=== PATIENT | male | born 1980 | race Caucasian/White ===

== ENCOUNTER 2016-07-14 08:55 | Emergency (ER) | payer OTHER ==
[2016-07-14 09:04] VITALS: BMI 29.0
[2016-07-14] MEDS ORDERED: Lidocaine 2% Viscous 100 ml PO STA (09:15)
[2016-07-14] MEDS ORDERED: Belladonna-Phenobarbital PO STA (09:15)
[2016-07-14] MEDS ORDERED: Sodium Chloride 0.9% 1,000 ML IV ONE (09:15)
[2016-07-14] MEDS ORDERED: Aluminum Hydroxide/Magnesium Hydroxide Susp (30 mL) PO STA (09:15)
--- NOTE | 2016-07-14 09:18 | C.PDOC ---
History Of Present Illness 36 y/o male presents to ED with complaints of epigastric abdominal pain, nausea and vomiting since yesterday. Pain is described as "burning and cramping", non radiating, and thinks it was caused by "spicy shrimp dinner". Patient denies fever, diarrhea or constipation. Patient took Pepto-bismol and Suzanna seltzer without relief. No other complaints at this time. Time Seen by Provider: 07/14/16 09:11 Chief Complaint (Nursing): Abdominal Pain History Per: Patient History/Exam Limitations: no limitations Onset/Duration Of Symptoms: Days Current Symptoms Are (Timing): Still Present Context: Food Quality Of Discomfort: Cramping, Burning Associated Symptoms: Nausea, Vomiting. denies: Fever, Chills, Diarrhea Past Medical History Reviewed: Historical Data, Nursing Documentation, Vital Signs Vital Signs: Last Vital Signs Temp 98.4 F 07/14/16 09:05 Pulse 81 07/14/16 09:05 Resp 16 07/14/16 09:05 BP 144/80 07/14/16 09:05 Pulse Ox 100 07/14/16 11:01 - Medical History PMH: No Chronic Diseases Family History: States: Unknown Family Hx - Social History Hx Alcohol Use: Yes Hx Substance Use: Yes - Immunization History Hx Tetanus Toxoid Vaccination: No Hx Influenza Vaccination: No Hx Pneumococcal Vaccination: No Review Of Systems Constitutional: Negative for: Fever, Chills Cardiovascular: Negative for: Chest Pain Respiratory: Negative for: Shortness of Breath Gastrointestinal: Positive for: Nausea, Vomiting, Abdominal Pain. Negative for : Diarrhea, Constipation Neurological: Negative for: Weakness, Headache, Dizziness Physical Exam - Physical Exam Appears: Non-toxic, No Acute Distress Skin: Warm, Dry, No Diaphoretic, No Pale Head: Atraumatic, Normacephalic Eye(s): bilateral: Normal Inspection Oral Mucosa: Moist Neck: Normal ROM Chest: Symmetrical Cardiovascular: Rhythm Regular Respiratory: Normal Breath Sounds, No Rales, No Rhonchi, No Wheezing Gastrointestinal/Abdominal: Bowel Sounds, Soft, Tenderness (Tenderness to epigastric area), No Distention, No Guarding, No Rebound Back: Normal Inspection, No CVA Tenderness Extremity: Bilateral: Atraumatic, Normal ROM Neurological/Psych: Oriented x3, Normal Speech, Other (No focal deficits) Gait: Steady ED Course And Treatment - Laboratory Results Result Diagrams: 07/14/16 09:38 07/14/16 09:38 Lab Interpretation: No Acute Changes O2 Sat by Pulse Oximetry: 100 (Room air ) Pulse Ox Interpretation: Normal Medical Decision Making Medical Decision Making: Impression: epigastric abdominal pain Plan: * Labs * IV NS, Pepcid, GI cocktail Progress: Labs reviewed showing mildly elevated LFT, otherwise unremarkable Patient reevaluated and admits to daily alcohol use. He continues to have pain and has not provided urine specimen. Toradol IV ordered UA was negative Second re-eval, patient reports feeling better, abdominal pain has improved. Patient has stable vital signs and appropriate for discharge. Advise dietary changes and will DC with RX. Instruct to follow up in the clinic. Disposition Counseled Patient/Family Regarding: Need For Followup, Rx Given - Disposition [facility]Outside[facility] Disposition: HOME/ ROUTINE Disposition Time: 10:59 Condition: STABLE Additional Instructions: Your labs show mildly elevated liver enzymes, which may be related to your alcohol consumption Please follow up with your primary doctor or clinic for further evaluation Take medication daily for gastritis and pain Prescriptions: Ranitidine HCl 150 mg PO DAILY #30 tablet Instructions: Gastritis (DC), Diet for Ulcers and Gastritis (ED) - POA Present On Arrival: None - Clinical Impression Clinical Impression: Gastritis - 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 - Scribe Statement The provider has reviewed the documentation as recorded by the Serafin Soriano All medical record entries made by the Serafin were at my direction and personally dictated by me. I have reviewed the chart and agree that the record accurately reflects my personal performance of the history, physical exam, medical decision making, and the department course for this patient. I have also personally directed, reviewed, and agree with the discharge instructions and disposition.
[2016-07-14] MEDS ORDERED: Sodium Chloride 0.9% 1,000 ML ONE (09:21)
[2016-07-14] MEDS ORDERED: Aluminum Hydroxide/Magnesium Hydroxide Susp (30 mL) ONE (09:21)
[2016-07-14] MEDS ORDERED: Belladonna-Phenobarbital ONE (09:21)
[2016-07-14 09:51] LABS: BASO # 0.1 K/uL (0.0-0.2); BASO % 0.7 % (0.0-2.0); EOS % 0.7 % (0.0-4.0); HEMATOCRIT 44.7 % (35.0-51.0); LYMPH # 2.4 K/uL (1.0-4.3); LYMPH % 31.8 % (20.0-40.0); MEAN CELL VOLUME 84.6 fL (80.0-94.0); MEAN CORPUSCULAR HEMOGLOBIN 28.7 pg (27.0-31.0); MEAN PLATELET VOLUME 10.6 fL (7.2-11.7); MONO # 0.7 K/uL (0.0-0.8); MONO % 8.9 % (0.0-10.0); NRBC % 0.2 % (0.0-2.0); RED CELL DISTRIBUTION WIDTH 13.3 % (11.5-14.5); WHITE BLOOD COUNT 7.4 K/uL (4.8-10.8)
[2016-07-14 09:53] LABS: CHLORIDE 98 mmol/L (98-107)
[2016-07-14 09:54] LABS: POTASSIUM 4.4 mmol/L (3.6-5.2); SODIUM 138 mmol/L (132-148)
[2016-07-14 09:56] LABS: ALB/GLOB RATIO 1.3 (1.0-2.1); ALKALINE PHOSPHATASE 77 U/L (38-126); ALT/SGPT 137 U/L (21-72); AST/SGOT 73 U/L (17-59); BILIRUBIN,TOTAL 1.2 mg/dL (0.2-1.3); BLOOD UREA NITROGEN 16 mg/dL (9-20); CARBON DIOXIDE 25 mmol/L (22-30); GFR AFRICAN-AMERICAN > 60; GLUCOSE,RANDOM 95 mg/dL (75-110); TOTAL PROTEIN 8.6 g/dL (6.3-8.3)
[2016-07-14 09:57] LABS: CALCIUM 9.1 mg/dl (8.6-10.4)
[2016-07-14 10:52] LABS: RBC URINE < 1 /hpf (0-3); URINE BILIRUBIN NEGATIVE (NEGATIVE); URINE BLOOD NEGATIVE (NEGATIVE); URINE COLOR Yellow (YELLOW); URINE GLUCOSE (UA) NORMAL (Normal); URINE KETONE NEGATIVE (NEGATIVE); URINE LEUKOCYTE ESTERASE NEG Leu/uL (Negative); URINE PROTEIN NEGATIVE (NEGATIVE); URINE UROBILINOGEN NORMAL mg/dL (0.2-1.0); WBC URINE < 1 /hpf (0-5)
[2016-07-14 11:11] VITALS: BP 145/75; PULSE 72; RESP 20; TEMP 97.9; O2SAT 99
== END 2016-07-14 11:10 | disposition home or self-care (01) ==
LOC: C.ER 08:55
DX: K29.70 Gastritis, unspecified, without bleeding (principal)
CPT/HCPCS: 80053; 81001; 83690; 85025; 96361; 96374; 96375; 99284; J1885; J2405; J7040